=== PATIENT | male | born 1975 | race Caucasian/White ===

== ENCOUNTER 2021-07-01 21:51 | Emergency (ER) | payer SELFPAY ==
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
== END 2021-07-01 22:52 ==
LOC: MW.ED 21:51
DX: S40.012A Contusion of left shoulder, initial encounter (principal); S05.12XA Contusion of eyeball and orbital tissues, left eye, initial encounter; Y04.0XXA Assault by unarmed brawl or fight, initial encounter
CPT/HCPCS: 99283